=== PATIENT | female | born 1960 | race Caucasian/White ===

== ENCOUNTER 2017-04-20 14:17 | Emergency (ER) | payer OTHER ==
--- NOTE | 2017-04-20 15:29 | UC ---
Minor Trauma HPI - HPI Summary HPI Summary: 56 YEAR OLD FEMALE PRESENTS WITH COMPLAINS OF LEFT FOOT AND COCCYX PAIN. - History of Current Complaint Chief Complaint: UCGeneralIllness Stated Complaint: FELL TOE INJURY LOWER BACK PAIN Time Seen by Provider: 04/20/17 15:25 Hx Obtained From: Patient Onset/Duration: Sudden Onset Severity Initially: Moderate Severity Currently: Moderate Pain Scale Used: 0-10 Numeric - 6 - Allergies/Home Medications Allergies/Adverse Reactions: Allergies Allergy/AdvReac Type Severity Reaction Status Date / Time Penicillins [PCN] Allergy Severe Swelling Verified 04/20/17 14:33 Of Face,Lips,& Throat Tetracycline Allergy Severe Swelling Verified 04/20/17 14:33 Of Face,Lips,& Throat Latex Allergy Intermediate Rash And Verified 04/20/17 14:33 Itching Bacitracin [From Neosporin] Allergy Unknown Unknown Verified 04/20/17 14:33 Reaction Details Neomycin [From Neosporin] Allergy Unknown Unknown Verified 04/20/17 14:33 Reaction Details Polymyxin B [From Neosporin] Allergy Unknown Unknown Verified 04/20/17 14:33 Reaction Details PMH/Surg Hx/FS Hx/Imm Hx Previously Healthy: Yes - Surgical History Surgical History: Yes Surgery Procedure, Year, and Place: tonsils; abd laparoscopic(ENDOMETRIOSIS); r knee ARTHROSCOPY - Family History Known Family History: Positive: Hypertension - Social History Alcohol Use: Rare Substance Use Type: None Substance Use Comment - Amount & Last Used: hx of IVDA, last use 2014 Smoking Status (MU): Heavy Every Day Tobacco Smoker Amount Used/How Often: 1 PACK PER WEEK X 40 YEARS- PATIENT IN THE PROCESS OF QUITTING Household Exposure Type: Cigarettes Review of Systems Constitutional: Negative Skin: Negative Eyes: Negative ENT: Negative Respiratory: Negative Cardiovascular: Negative Gastrointestinal: Negative Genitourinary: Negative Motor: Negative Neurovascular: Negative Musculoskeletal: Myalgia - LEFT FOOT AND COCCYX PAIN Neurological: Negative Psychological: Negative All Other Systems Reviewed And Are Negative: Yes Physical Exam Triage Information Reviewed: Yes Vital Signs: Initial Vital Signs Temp 36.9 C 04/20/17 14:28 Pulse 78 04/20/17 14:28 Resp 18 04/20/17 14:28 BP 90/55 04/20/17 14:28 Pulse Ox 98 04/20/17 14:28 Eye Exam: Normal ENT Exam: Normal Dental Exam: Normal Neck exam: Normal Neck: Positive: 1 Respiratory Exam: Normal Cardiovascular Exam: Normal Abdominal Exam: Normal Musculoskeletal: Positive: Other: - LEFT FOOT AND COCCYX PAIN Neurological Exam: Normal Psychological Exam: Normal Skin Exam: Normal Minor Trauma Course/Dx - Differential Dx/Diagnosis Provider Diagnoses: LEFT FOOT PAIN. COCCYX PAIN Discharge - Discharge Plan Condition: Stable Disposition: HOME Prescriptions: Meloxicam [Mobic] 7.5 mg PO BID PC #30 tab Patient Education Materials: Coccyx Injury (ED), Foot Contusion (ED), Foot Sprain (ED) Referrals: Pankaj Capone MD [Primary Care Provider] -
--- NOTE | 2017-04-20 16:03 | RAD ---
INDICATION: Left foot injury. TECHNIQUE: 3 views of the left foot were obtained. FINDINGS: The bones are in normal alignment. There is mild deformity of the distal fifth metatarsal likely secondary to an old healed fracture. No acute fracture is seen. Joint spaces appear maintained. IMPRESSION: NO EVIDENCE FOR ACUTE FRACTURE, IF THE PATIENT'S SYMPTOMS PERSIST RECOMMEND FOLLOW-UP IMAGING.
--- NOTE | 2017-04-20 16:05 | RAD ---
INDICATION: Sacrococcygeal injury. COMPARISON: There are no prior studies available for comparison. TECHNIQUE: 3 views of the sacrococcygeal spine were obtained. FINDINGS: The vertebra are in normal alignment. No fracture is seen. IMPRESSION: NO EVIDENCE FOR FRACTURE.
[2017-04-20 16:30] VITALS: BP 101/62
== END 2017-04-20 16:28 | disposition home or self-care (01) ==
LOC: UCEAST 14:17
DX: M79.672 Pain in left foot (principal); M53.3 Sacrococcygeal disorders, not elsewhere classified; Z88.0 Allergy status to penicillin; Z88.3 Allergy status to other anti-infective agents; Z91.040 Latex allergy status; F17.210 Nicotine dependence, cigarettes, uncomplicated
CPT/HCPCS: 72220; 99213; G0463

== ENCOUNTER 2017-05-13 15:12 | Emergency (ER) | payer OTHER ==
[2017-05-13 16:17] VITALS: BP 129/99
--- NOTE | 2017-05-13 18:15 | ED ---
Teresa Ortiz Alfonso, scribed for Laureano Hunt MD on 05/13/17 at 1601 . Substance Abuse/Use - HPI Summary HPI Summary: This patient is a 56 year old F BIBA to [facility] s/p heroin overdose this afternoon. She states I shot heroin at the needle exchange so I would be safe. She was given nasal Naloxone at approximately 1400. The patient rates the pain 0/10 in severity. Symptoms aggravated by nothing. Symptoms alleviated by nothing. Patient denies any pain. - History Of Current Complaint Chief Complaint: EDOverdose Stated Complaint: OVERDOSE Time Seen by Provider: 05/13/17 15:36 Onset/Duration of Drug/ETOH Abuse: Hours Ingestion History: Type/Name Of Drug - Heroin, Approximate Time Of Ingestion - afternoon Overdose Characteristics: IV Timing Of Abuse: Binge Use Severity Initially: Moderate Severity Currently: Moderate Aggravating Factor(s): Nothing Alleviating Factor(s): Nothing Associated Signs And Symptoms: Intentional Ingestion, Other: - Negative pain - Allergies/Home Medications Allergies/Adverse Reactions: Allergies Allergy/AdvReac Type Severity Reaction Status Date / Time Penicillins [PCN] Allergy Severe Swelling Verified 04/20/17 14:33 Of Face,Lips,& Throat Tetracycline Allergy Severe Swelling Verified 04/20/17 14:33 Of Face,Lips,& Throat Latex Allergy Intermediate Rash And Verified 04/20/17 14:33 Itching Bacitracin [From Neosporin] Allergy Unknown Unknown Verified 04/20/17 14:33 Reaction Details Neomycin [From Neosporin] Allergy Unknown Unknown Verified 04/20/17 14:33 Reaction Details Polymyxin B [From Neosporin] Allergy Unknown Unknown Verified 04/20/17 14:33 Reaction Details PMH/Surg Hx/FS Hx/Imm Hx Endocrine/Hematology History: Reports: Hx Anemia - HX OF Denies: Hx Diabetes, Hx Thyroid Disease Cardiovascular History: Denies: Hx Hypertension, Hx Pacemaker/ICD Respiratory History: Reports: Hx Chronic Obstructive Pulmonary Disease (COPD) Denies: Hx Asthma GI History: Reports: Hx Gastroesophageal Reflux Disease, Hx Irritable Bowel Denies: Hx Ulcer Musculoskeletal History: Reports: Hx Arthritis, Hx Tendonitis - WRISTS, Other Musculoskeletal History - DDD-NECK Sensory History: Reports: Hx Contacts or Glasses - GLASSES Denies: Hx Hearing Aid Opthamlomology History: Reports: Hx Contacts or Glasses - GLASSES Neurological History: Reports: Hx Migraine - HX OF- NONE RECENTLY Psychiatric History: Reports: Hx Anxiety - HX OF- ON MEDICATION FOR, Hx Depression - HX OF- ON MEDICATION FOR Denies: Hx Panic Disorder, Hx of Violent Episodes Against Others - Surgical History Surgery Procedure, Year, and Place: tonsils; abd laparoscopic(ENDOMETRIOSIS); r knee ARTHROSCOPY Hx Anesthesia Reactions: No Infectious Disease History: No Infectious Disease History: Denies: Hx Clostridium Difficile, Hx Hepatitis, Hx Human Immunodeficiency Virus (HIV), Hx of Known/Suspected MRSA, Hx Shingles, Hx Tuberculosis, Hx Known/ Suspected VRE, Hx Known/Suspected VRSA, History Other Infectious Disease, Traveled Outside the [place] in Last 30 Days - Family History Known Family History: Positive: Hypertension - Social History Alcohol Use: Rare Substance Use Type: Reports: None Substance Use Comment - Amount & Last Used: OD Heroin 05/13/2017 Smoking Status (MU): Heavy Every Day Tobacco Smoker Amount Used/How Often: 1 PACK PER WEEK X 40 YEARS- PATIENT IN THE PROCESS OF QUITTING Review of Systems Negative: Fever Neurological: Other - heroin overdose All Other Systems Reviewed And Are Negative: Yes Physical Exam Triage Information Reviewed: Yes Vital Signs On Initial Exam: Initial Vitals Temp Pulse Resp BP Pulse Ox 99.2 F 79 18 142/75 96 05/13/17 15:17 05/13/17 15:17 05/13/17 15:17 05/13/17 15:17 05/13/17 15:17 Vital Signs Reviewed: Yes Appearance: Positive: Well-Appearing, No Pain Distress Skin: Positive: Warm, Skin Color Reflects Adequate Perfusion, Dry Head/Face: Positive: Normal Head/Face Inspection Eyes: Positive: Normal ENT: Positive: Normal ENT inspection Neck: Positive: Supple, Nontender Respiratory/Lung Sounds: Positive: Clear to Auscultation, Breath Sounds Present Cardiovascular: Positive: RRR Abdomen Description: Positive: Nontender, Soft Bowel Sounds: Positive: Present Musculoskeletal: Positive: Normal Neurological: Positive: Normal, Sensory/Motor Intact, Alert, Oriented to Person Place, Time, CN Intact II-III Psychiatric: Positive: Affect/Mood Appropriate - Lyons Coma Scale Coma Scale Total: 15 Diagnostics - Vital Signs Vital Signs Temp Pulse Resp BP Pulse Ox 05/13/17 15:17 99.2 F 79 18 142/75 96 - Laboratory Lab Statement: Any lab studies that have been ordered have been reviewed, and results considered in the medical decision making process. Course/Dx - Course Course Of Treatment: Ms. Wang was stable here and warned about the seriousness of her choices. - Diagnoses Provider Diagnoses: Heroin overdose Discharge - Discharge Plan Condition: Stable Disposition: HOME Patient Education Materials: Narcotic Abuse (ED), Naloxone (Into the nose) Referrals: Pankaj Capone MD [Primary Care Provider] - 3 Days The documentation as recorded by the Teresa felix Alfonso accurately reflects the service I personally performed and the decisions made by me, Laureano Hunt MD.
== END 2017-05-13 16:21 | disposition home or self-care (01) ==
LOC: ED 15:12
DX: T40.1X1A Poisoning by heroin, accidental (unintentional), initial encounter (principal); Y92.9 Unspecified place or not applicable; K21.9 Gastro-esophageal reflux disease without esophagitis; K58.9 Irritable bowel syndrome, unspecified; F17.210 Nicotine dependence, cigarettes, uncomplicated; Z87.11 Personal history of peptic ulcer disease; F41.8 Other specified anxiety disorders
CPT/HCPCS: 99282

== ENCOUNTER 2018-02-04 13:22 | Emergency (ER) | payer OTHER ==
[2018-02-04 13:43] VITALS: BP 107/68
--- NOTE | 2018-02-04 13:57 | UC ---
Ian Ortiz Angela, scribed for Jasbir Nix MD on 02/04/18 at 1346 . Eye Complaint HPI - HPI Summary HPI Summary: This pt is a 57 y/o female presenting to [facility] c/o right eye redness and discharge since yesterday. Pt reports 2 days ago she woke up with a pruritic right eye. She states she itched her eye the whole night. The next morning ( yesterday) she developed right eye redness with yellowish discharge. This morning upon waking up her right eye had worsened and decided to come to Urgent Care. Denies changes in visual acuity, eye pain, fever, chills. - History of Current Complaint Chief Complaint: UCEye Stated Complaint: eye complaint Time Seen by Provider: 02/04/18 13:42 Hx Obtained From: Patient Onset/Duration: Lasting Days, Still Present Timing: Days Severity Currently: None Pain Intensity: 0 - denies eye pain Pain Scale Used: 0-10 Numeric Location of Injury: Conjunctiva Aggravating Factor(s): Nothing Alleviating Factor(s): Nothing Associated Signs And Symptoms: Positive: Drainage (Purulent) - yellow. Negative : Vision Impairment Bilateral, Vision Impairment Right, Vision Impairment Left, Fever - Allergies/Home Medications Allergies/Adverse Reactions: Allergies Allergy/AdvReac Type Severity Reaction Status Date / Time bacitracin Allergy Unknown Verified 02/04/18 13:44 [From Neosporin Reaction ([id number])] Details latex Allergy Rash And Verified 02/04/18 13:44 Itching neomycin Allergy Unknown Verified 02/04/18 13:44 [From Neosporin Reaction ([id number])] Details Penicillins Allergy Swelling Verified 02/04/18 13:44 Of Face,Lips,& Throat polymyxin B Allergy Unknown Verified 02/04/18 13:44 [From Neosporin Reaction ([id number])] Details tetracycline Allergy Swelling Verified 02/04/18 13:44 Of Face,Lips,& Throat PMH/Surg Hx/FS Hx/Imm Hx Other Endocrine History: DENIES: diabetes Respiratory History: COPD - Surgical History Surgical History: Yes Surgery Procedure, Year, and Place: tonsils; abd laparoscopic(ENDOMETRIOSIS); r knee ARTHROSCOPY - Family History Known Family History: Positive: Hypertension - Social History Alcohol Use: Rare Substance Use Type: None Substance Use Comment - Amount & Last Used: OD Heroin 05/13/2017 Smoking Status (MU): Heavy Every Day Tobacco Smoker Amount Used/How Often: 1 PACK PER WEEK X 40 YEARS- PATIENT IN THE PROCESS OF QUITTING Household Exposure Type: Cigarettes Review of Systems Constitutional: Negative Skin: Negative Eyes: Drainage, Eye Redness, Other - NEG: changes in visual acuity. ENT: Negative Respiratory: Negative Cardiovascular: Negative Gastrointestinal: Negative Genitourinary: Negative Motor: Negative Neurovascular: Negative Musculoskeletal: Negative Neurological: Negative Psychological: Negative Is Patient Immunocompromised?: No All Other Systems Reviewed And Are Negative: Yes Physical Exam - Summary Physical Exam Summary: VITAL SIGNS: Reviewed. GENERAL: Patient is a well-developed and nourished female who is lying comfortable in the stretcher. Patient is not in any acute respiratory distress. HEAD AND FACE: Normocephalic EYES: PERRLA, EOMI x 2. Injected conjunctiva on the right. EARS: Hearing grossly intact. MOUTH: Oropharynx within normal limits. NECK: Supple, trachea is midline, no adenopathy, no JVD, no carotid bruit. CHEST: Symmetric, no tenderness at palpation LUNGS: Clear to auscultation bilaterally. No wheezing or crackles. CVS: Regular rate and rhythm, S1 and S2 present, no murmurs or gallops appreciated. ABDOMEN: Soft, non-tender. Bowel sounds are normal. No abdominal abnormal pulsations. EXTREMITIES: Full ROM in all major joints, no edema, no cyanosis or clubbing. NEURO: Alert and oriented x 3. No acute neurological deficits. Speech is normal and follows commands. SKIN: Dry and warm Triage Information Reviewed: Yes Vital Signs: Initial Vital Signs Temp 98.8 F 02/04/18 13:39 Pulse 62 02/04/18 13:39 Resp 18 02/04/18 13:39 BP 107/68 02/04/18 13:39 Pulse Ox 98 02/04/18 13:39 Vital Signs Reviewed: Yes Eye Complaint Course/Dx - Course Course Of Treatment: Patient with right right conjunctivitis. Patient was given a prescription for ciprofloxacin toxic. She is discharged home with follow-up with PCP. I discussed all the findings and test results with the patient and Patient was instructed to return to the or go to the ED if develops any fever, increase sore throat unable to swallow, drooling, unable to open their mouth, or any other symptoms. The patient understands and agrees. Plan of care was discussed with the patient and understands and agrees. All questions were answered at patient satisfaction. There were no further complaints or concerns. Patient is A + O X 3. hemodynamically stable. - Differential Dx/Diagnosis Provider Diagnoses: Conjunctivitis Discharge - Sign-Out/Discharge Documenting (check all that apply): Discharge/Admit/Transfer - Discharge - Discharge Plan Condition: Stable Disposition: HOME Prescriptions: Ciprofloxacin 0.3% OPTH.DEMOND* [Cipro 0.3% Opth*] 1 drop BOTH EYES Q2H #1 btl Patient Education Materials: Conjunctivitis (ED) Referrals: Dejah Nash MD [Primary Care Provider] - Additional Instructions: RETURN TO URGENT CARE OR THE ED FOR ANY WORSENING OR NEW SYMPTOMS. - Billing Disposition and Condition Condition: STABLE Disposition: HOME The documentation as recorded by the Ian felix Angela accurately reflects the service I personally performed and the decisions made by Boyd montes Walter, MD.
== END 2018-02-04 14:00 | disposition home or self-care (01) ==
LOC: UCEAST 13:22
DX: H10.31 Unspecified acute conjunctivitis, right eye (principal); J44.9 Chronic obstructive pulmonary disease, unspecified; Z88.0 Allergy status to penicillin; Z88.1 Allergy status to other antibiotic agents; Z88.3 Allergy status to other anti-infective agents; Z91.040 Latex allergy status; Z82.49 Family history of ischemic heart disease and other diseases of the circulatory system; F17.210 Nicotine dependence, cigarettes, uncomplicated
CPT/HCPCS: 99212; G0463